=== PATIENT | male | born 1935 | race Caucasian/White ===

== ENCOUNTER → 2016-10-05 | Outpatient (CLI) | payer MEDICARE, OTHER | END | disposition home or self-care (01) | LOC: CFH 14:24 | PROVIDERS: ATTEND Specialist | DX: C64.1 Malignant neoplasm of right kidney, except renal pelvis (principal); N28.1 Cyst of kidney, acquired; K80.20 Calculus of gallbladder without cholecystitis without obstruction; K85.90 Acute pancreatitis without necrosis or infection, unspecified; K76.89 Other specified diseases of liver; I71.4 Abdominal aortic aneurysm, without rupture; Z90.5 Acquired absence of kidney | CPT/HCPCS: 74150; 82565 ==

== ENCOUNTER → 2017-11-27 | Outpatient (CLI) | payer MEDICARE, OTHER | END | disposition home or self-care (01) | LOC: CVU 12:19 | PROVIDERS: ATTEND Internal Medicine Cardiovascular Disease | DX: I65.23 Occlusion and stenosis of bilateral carotid arteries (principal); I08.3 Combined rheumatic disorders of mitral, aortic and tricuspid valves; I10 Essential (primary) hypertension; I71.4 Abdominal aortic aneurysm, without rupture; Z72.0 Tobacco use; Z95.1 Presence of aortocoronary bypass graft | CPT/HCPCS: 93306; 93880 ==

== ENCOUNTER → 2018-07-17 | Outpatient (CLI) | payer MEDICARE, OTHER | END | disposition home or self-care (01) | LOC: CVU 12:27 | PROVIDERS: ATTEND Internal Medicine Cardiovascular Disease | DX: I08.3 Combined rheumatic disorders of mitral, aortic and tricuspid valves (principal); M48.56XA Collapsed vertebra, not elsewhere classified, lumbar region, initial encounter for fracture; K76.89 Other specified diseases of liver; K80.20 Calculus of gallbladder without cholecystitis without obstruction; N28.1 Cyst of kidney, acquired; I25.810 Atherosclerosis of coronary artery bypass graft(s) without angina pectoris; I71.4 Abdominal aortic aneurysm, without rupture; I65.23 Occlusion and stenosis of bilateral carotid arteries; I25.2 Old myocardial infarction; I10 Essential (primary) hypertension; E78.5 Hyperlipidemia, unspecified; F17.200 Nicotine dependence, unspecified, uncomplicated; Z95.1 Presence of aortocoronary bypass graft; Z95.818 Presence of other cardiac implants and grafts; Z86.73 Personal history of transient ischemic attack (TIA), and cerebral infarction without residual deficits | CPT/HCPCS: 0399T; 74150; 93306; 93880 ==

== ENCOUNTER 2018-09-05 10:57 | Emergency (ER) | payer MEDICARE, OTHER ==
[~2018-09-05] VITALS: Ht 175.3 cm; Wt 75.0 kg
--- NOTE | 2018-09-05 11:12 | NUR ---
P BIB [facility] FOR PT REPORTS LEFT SIDED WEAKNESS BEGINNING AT APPOX 0900, SYMPTOMS HAVE RESOLVED AT THIS TIME.
[2018-09-05] MEDS ORDERED: SODIUM CHLORIDE FLUSH 10ML SYR IVF ONE (11:30)
[2018-09-05] MEDS ORDERED: ASPIRIN 81 MG TABLET CHEW PO ONE (11:30)
[2018-09-05 11:54] LABS: BASOPHILS # (AUTO) 0.02 x10^3/uL (0-0.1); BASOPHILS % (AUTO) 0 % (0-1); EOSINOPHILS # (AUTO) 0.44 x10^3/uL (0-0.4); EOSINOPHILS % (AUTO) 6 % (1-7); LYMPHOCYTES # (AUTO) 1.38 x10^3/uL (1-3.4); LYMPHOCYTES % (AUTO) 18 % (22-44); MD NO; MEAN CORPUSCULAR HEMOGLOBIN 32.3 pg (27.5-34.5); MEAN CORPUSCULAR HGB CONC 33.5 g/dL (33.2-36.2); MEAN CORPUSCULAR VOLUME 96.4 fL (81-97); MEAN PLATELET VOLUME 7.7 fL (7.4-10.4); MONOCYTES # (AUTO) 1.12 x10^3/uL (0.2-0.8); MONOCYTES % (AUTO) 15 % (2-9); NEUTROPHILS % (AUTO) 61 % (42-75); PLATELET COUNT 196 x10^3/uL (130-400); RED BLOOD COUNT 3.73 x10^6/uL (4.38-5.82)
--- NOTE | 2018-09-05 11:54 | NUR ---
BEDSIDE REPORT FROM [facility] RN WITH ASSESSMENT PATIENT WITH NEUROLOGICAL EXAM UNREMARKABLE (LEFT SIDED STRENGTH/SENSATION 5/5)
--- NOTE | 2018-09-05 11:56 | NUR ---
BEDSIDE REPORT TO JEANNE YO, PT CARE TRANSFERRED AT THIS TIME
[2018-09-05 12:03] LABS: ANION GAP 6 mmol/L (5-15); CALCIUM 8.7 mg/dL (8.5-10.1); CHLORIDE 109 mmol/L (98-107)
[2018-09-05 12:10] LABS: CREATININE 1.62 mg/dL (0.7-1.3); TROPONIN I 0.039 ng/mL (0.000-0.045)
--- NOTE | 2018-09-05 12:25 | NUR ---
TO CT SCAN
[2018-09-05] MEDS ORDERED: ASPIRIN 81 MG TABLET CHEW ONE (13:34)
--- NOTE | 2018-09-05 13:40 | NUR ---
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 SWALLOW ASSESSMENT PERFORMED PRIOR TO(PASSED)
--- NOTE | 2018-09-05 14:15 | NUR ---
Provider to bedside- To discharge as patient already medically optimized for stroke prevention and already w/ f/u appointment with toll repairer central office tomorrow Ambulated halls w/out difficulty. Remains w/ no neurological deficits (Strength/sensory 5/5 to all extremities) Advised to quit smoking
[2018-09-05 14:21] VITALS: BP 154/74
== END 2018-09-05 14:24 | disposition home or self-care (01) ==
LOC: ED 12:46
DX: I66.09 Occlusion and stenosis of unspecified middle cerebral artery (principal); I65.29 Occlusion and stenosis of unspecified carotid artery; F17.200 Nicotine dependence, unspecified, uncomplicated; I25.2 Old myocardial infarction; I10 Essential (primary) hypertension
CPT/HCPCS: 36415; 70450; 71045; 80048; 82040; 84484; 85025; 93005; 99284

== ENCOUNTER 2019-03-21 11:39 | Day surgery (SDC) | payer MEDICARE, OTHER ==
[~2019-03-21] VITALS: Ht 175.3 cm; Wt 77.3 kg
[~2019-03-21 11:39] MED LIST: ALBU90AE INH; APIX2.5T PO; ASPI81TA45 PO; ATOR10TA PO; ATOR20TA37 PO; BUDE10.2 INH; CARV3.1212 PO; CLOP75TA52 PO; FERR-51 PO; FLUT1BLS INH; FURO40TA6 PO; ISOS30TA8 PO; NIAC500C8 PO; PRED20TA PO; TAMS-11 PO; TIOT18CA INH; ZETA PO
[2019-03-21] MEDS ORDERED: SODIUM CHLORIDE 0.9% 1,000 ML IV ONE (13:00)
[2019-03-21 13:14] LABS: ANION GAP 6 mmol/L (5-15); CALCIUM 8.2 mg/dL (8.5-10.1); CHLORIDE 108 mmol/L (98-107); CREATININE 1.52 mg/dL (0.7-1.3)
[2019-03-21 13:16] VITALS: BP 127/67
[2019-03-21] MEDS ORDERED: PROPOFOL 10 MG/ML, 20ML ONE (13:37)
== END 2019-03-21 15:12 | disposition home or self-care (01) ==
LOC: CACL 11:39
PROVIDERS: ATTEND Internal Medicine Cardiovascular Disease
DX: I48.91 Unspecified atrial fibrillation (principal); I25.10 Atherosclerotic heart disease of native coronary artery without angina pectoris; I12.9 Hypertensive chronic kidney disease with stage 1 through stage 4 chronic kidney disease, or unspecified chronic kidney disease; N18.3 Chronic kidney disease, stage 3 (moderate); I65.23 Occlusion and stenosis of bilateral carotid arteries; E78.5 Hyperlipidemia, unspecified; F17.210 Nicotine dependence, cigarettes, uncomplicated; Z79.01 Long term (current) use of anticoagulants; Z79.02 Long term (current) use of antithrombotics/antiplatelets; Z79.82 Long term (current) use of aspirin; Z79.899 Other long term (current) drug therapy; Z85.53 Personal history of malignant neoplasm of renal pelvis; Z90.5 Acquired absence of kidney; Z95.5 Presence of coronary angioplasty implant and graft; Z98.890 Other specified postprocedural states
CPT/HCPCS: 36415; 80048; 92960; 93005; 93312; 93321; 93325; J2704